=== PATIENT | male | born 1990 | race Caucasian/White ===

== ENCOUNTER 2016-10-26 18:46 | Emergency (ER) | payer MEDICAID ==
[~2016-10-26] VITALS: Ht 188 cm; Wt 102.1 kg
[~2016-10-26 18:46] MED LIST: AMOXICILLIN 50500 MG PO; ELIMITE 5%60 GM/TUBE EX; KEFLEX 500MG.500 MG PO; LAMISIL1% TP; LISINOPRIL/HCTZ1 TA3 PO; LORTAB 5/500 501 TAB PO; NOMEDS *; NORVASC 5MG. TAB5 MG PO; PREDNISONE 20MG20 MG PO; ROBAXIN-750750 MG PO
[2016-10-26] MEDS ORDERED: LOSARTAN POTASS1 TA3 PO (19:35)
[2016-10-26 19:47] LABS: URINE BILIRUBIN - DIPSTICK NEGATIVE (NEG); URINE BLOOD TRACE-LYSED (NEG)
[2016-10-26 19:54] LABS: AMPHETAMINES/METAMPHETAMINES NEGATIVE ng/mL (<1000)
[2016-10-26 20:17] LABS: HEMOGLOBIN 15.8 g/dL (14.1-18.0); LYMPH # 1.7 K/mm3 (0.7-4.5); LYMPH % 17.6 % (10-50)
--- NOTE | 2016-10-26 20:37 | Emergency Room Report ---
History of Present Illness Time Seen by [id number] Presenting Problem in Triage Pt arrived:Walked Presenting Problem:PT COMPLAINING OF FEELING LIGHT HEADED AND "LOTS OF PRESSURE " IN HEAD. PT STATES THAT IT STARTED THIS AM. 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 N Clinical Suspician of Infection? N Mental Status: 1 - Regular (Normal Baseline) Sepsis Risk:Low Sepsis Risk Have you (or family members/close friends) recently traveled outside the [place]? N If Yes, where/when: Have you had exposure to infectious disease within the past month? N TB? Other? Specify: Source patient, RN notes reviewed, family, old records Exam Limitations no limitations Comment feeling dizzy in head and light headed today - he states he feels this way after using etoh which he did yesterday Cardiac Chest Pain Chest pain indicative of cardiac No Timing/Duration this evening Severity moderate ALLERGIES Coded Allergies: No Known Allergies (10/26/16) Home Medications Reported Medications LOSARTAN/HYDROCHLOROTHIAZIDE (Losartan-Hctz 100-12.5 MG Tab) 1 TAB PO DAILY #27 History Medical History General CAD? No Angina: No [place]: No Hypertension? Yes Hyperlipidemia? No CHF? No DVT? No PE? No COPD? No Asthma? No Anemia? No GERD? No Gastric ulcers? No GI Bleed? No Hernia? Yes Thyroid Problems? No Hypothyroidism? No CVA? No Seizures? No Diabetes? No Insulin Dependent: No Insulin Pump: No Home FSBS? No Renal Insuffiency? No End Stage Renal Disease? No UTI? No Stones? No BPH? No GB Disease: No Nephritic Syndrome? No Asplenia? No Hepatitis? No Sickle Cell Disease? No Arthritis? No Migraines? No Cataracts? No Glaucoma? No MRSA? No HIV? No TB? No Anxiety? Yes Depression? No Cancer? No More? No Immunization Hx DT/Tetanus 1-4 Years Ago Flu 2 YRS AGO Pneumonia Never Had Surgical Hx Previous Surgery?Y DOUBLE HERNIA REPAIR,BABY L KNEE REPAIR WISDOM TEETH Family History Family Hx Diabetes No CAD No Hypertension No Hyperlipidemia No Cancer No TB No Social History Smoking Hx Smoker: Never Smoker Tobacco: No Type N/A Are you/the child exposed to second-hand smoke: No Alcohol Alcohol: Yes Drugs none Review of Systems All Other Systems Reviewed and Negative Constitutional see HPI, denies fever, other Eyes denies drainage ENT denies: ear pain, epistaxis, throat pain. Respiratory denies cough, denies shortness of breath, denies wheezing Cardiovascular see HPI, denies chest pain, denies palpitations, denies syncope, other Gastrointestinal denies abdominal pain, denies diarrhea, denies vomiting Genitourinary denies: dysuria, frequency, hesitancy, hematuria. Musculoskeletal denies joint pain, denies joint swelling, denies neck pain Skin denies rash Psychiatric/Neurological denies headache, denies seizure Physical Exam Vital Signs Vital Signs Date Time Temp Pulse Resp B/P Pulse O2 O2 Flow FiO2 Ox Delivery Rate 10/26 2039 98.7 99 22 124/72 99 10/26 1932 98.8 97 18 125/92 100 - WBC >12,000 or <4,000 or 10% bands? 2 or more SIRS Criteria Met? B/P:124/72 MAP:103 Creatinine >2.0? UA output<0.5ml/kg/hr for 2 hrs? Platelet count >100,000? Lactate >2.0mmol/1? INR >1.2 or PTT > than 60 sec? Evidence of Organ Dysfunction? Provider documented clinical suspician of infection? N Sepsis Criteria Count: 1 Sepsis Risk: Low Sepsis Risk General Appearance no apparent distress Eye Exam - bilateral eye PERRL, bilateral eye EOMI Ear, Nose, Throat normal ENT inspection Neck supple Respiratory Status No: respiratory distress. Lung Sounds bilateral: lungs clear. 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 No Results/Orders Laboratory Tests 10/26/162004: Sodium 137, Potassium 3.8, Chloride 99, Carbon Dioxide 28, BUN 8, Creatinine 0.9 , Estimated Creat Clear 178, Estimated GFR (MDRD) 101, Glucose 100, Calcium 9.7, Total Bilirubin 0.8, AST 70 H, ALT 60, Alkaline Phosphatase 93, Total Protein 8.6 H, Albumin 4.3, Globulin 4.3 H, Albumin/Globulin Ratio 1.0 L, WBC 9.6, RBC 5.11, Hgb 15.8, Hct 45.8, MCV 89.6, RDW 13.9, Plt Count 277, MPV 8.5, Gran % 76.9, Gran # 7.4, Lymphocytes % 17.6, Monocytes % 4.4, Eosinophils % 0.3, Basophils % 0.8, Lymphocytes # 1.7, Monocytes # 0.4, Eosinophils # 0.0, Basophils # 0.1, PUBS MCHC 34.4, MCH 30.9, Alcohols < 3 10/26/161934: Opiates Screen NEGATIVE, Urine Methadone Screen NEGATIVE, Barbiturates NEGATIVE, Phencyclidine Screen NEGATIVE, Amphetamines Screen NEGATIVE, Benzodiazepines Screen NEGATIVE, Cocaine Screen NEGATIVE, Marijuana (THC) Screen POSITIVE H, Urine Color YELLOW, Urine Appearance CLEAR, Urine pH 6.0, Ur Specific [place] <= 1.005, Urine Protein NEGATIVE, Urine Ketones 1+ H, Urine Blood TRACE-LYSED, Urine Nitrate NEGATIVE, Urine Bilirubin NEGATIVE, Urine Urobilinogen 0.2, Ur Leukocyte Esterase NEGATIVE, Urine RBC 3-5, Ur Squamous Epith Cells 3-5, Urine Bacteria TRACE, Urine Glucose NEGATIVE Current Medication Orders Sig/Nadeem Start time Last Medication Dose Route Stop Time Status Admin Sodium Chloride 1,000 ML .STK-MED ONE 10/26 2007 DC IV Sodium Chloride 10 ML PRN PRN 10/26 1999 AC IV 10/27 1956 Sodium Chloride 1,000 ML .Q1H1M 10/26 1999 DC 10/26 IV 10/26 Sodium Chloride 10 ML PRN PRN 10/26 1999 AC IV 10/27 1956 Orders Procedure Date/time Status ALCOHOL 10/26 2037 Complete IV SALINE LOCK 10/26 1956 Active CBC WITH AUTO DIFF 10/26 1956 Complete CHEM 12 PROFILE 10/26 1956 Complete URINALYSIS/COMPLETE 10/26 1936 Complete DRUG ABUSE SCREEN (TRIAGE) 10/26 1936 Complete Departure Departure Time of Disposition 2113 Disposition DC Home or Self Care(routine) Clinical Impression Primary Impression: Dizziness Condition STABLE Referrals Slim Stahl (Family) Patient Instructions DI for Dizziness-Nonvertigo Additional Instructions fluids and please consider not drinking Discharge Counseling Counseled pt/family regarding diagnosis, test results, medications/RX, follow up needs ED Critical Care Critical Care No (.) at [phone]
[2016-10-26 21:45] VITALS: BP 129/81
== END 2016-10-26 21:47 | disposition home or self-care (01) ==
LOC: ER 18:46
PROVIDERS: Emergency Medicine
DX: R42 Dizziness and giddiness (principal); I10 Essential (primary) hypertension; F41.9 Anxiety disorder, unspecified; F10.10 Alcohol abuse, uncomplicated
CPT/HCPCS: G6040

== ENCOUNTER 2017-06-08 14:46 | Emergency (ER) | payer MEDICAID ==
[~2017-06-08] VITALS: Ht 188 cm; Wt 104.3 kg
[~2017-06-08 14:46] MED LIST changes: +ESCITALOPRAM10 M1 PO; +LISINOPRIL20 MG PO; +LOSARTAN POTASS1 TA3 PO; +METOPROLOL SUCC25 M2 PO
[2017-06-08 15:04] LABS: URINE BILIRUBIN - DIPSTICK NEGATIVE (NEG); URINE BLOOD NEGATIVE (NEG)
--- NOTE | 2017-06-08 15:04 | Emergency Room Report ---
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 N Clinical Suspician of Infection? N Mental Status: 1 - Regular (Normal Baseline) Sepsis Risk:Low Sepsis Risk Have you (or family members/close friends) recently traveled outside the [place]? N If Yes, where/when: Have you had exposure to infectious disease within the past month? N TB? Other? Specify: Source patient, RN notes reviewed, family, RN/MD Exam Limitations no limitations Comment Patient is here with LEFT lower quadrant abdominal pain since early this morning. He denies any fever, nausea, vomiting, diarrhea. Patient denies any recent travel, any recent exposure to sick contacts. ALLERGIES Coded Allergies: No Known Allergies (10/26/16) Home Medications Reported Medications LOSARTAN/HYDROCHLOROTHIAZIDE (Losartan-Hctz 100-12.5 MG Tab) 1 TAB PO DAILY #27 Metoprolol Succinate 25 MG PO DAILY #30 Escitalopram Oxalate 10 MG PO DAILY #30 Lisinopril 20 MG PO DAILY #30 History Medical History General CAD? No Angina: No [place]: No Hypertension? Yes Hyperlipidemia? No CHF? No DVT? No PE? No COPD? No Asthma? No Anemia? No GERD? No Gastric ulcers? No GI Bleed? No Hernia? Yes Thyroid Problems? No Hypothyroidism? No CVA? No Seizures? No Diabetes? No Insulin Dependent: No Insulin Pump: No Home FSBS? No Renal Insuffiency? No End Stage Renal Disease? No UTI? No Stones? No BPH? No GB Disease: No Nephritic Syndrome? No Asplenia? No Hepatitis? No Sickle Cell Disease? No Arthritis? No Migraines? No Cataracts? No Glaucoma? No MRSA? No HIV? No TB? No Anxiety? Yes Depression? No Cancer? No More? No Immunization Hx DT/Tetanus 1-4 Years Ago Flu 2 YRS AGO Pneumonia Never Had Surgical Hx Previous Surgery?Y DOUBLE HERNIA REPAIR,BABY L KNEE REPAIR WISDOM TEETH Family History Family Hx Diabetes No CAD No Hypertension No Hyperlipidemia No Cancer No TB No Social History Smoking Hx Smoker: Current Every Day Smoker Tobacco: No Type Cigarettes Alcohol Alcohol: Yes Review of Systems All Other Systems Reviewed and Negative Gastrointestinal abdominal pain (LLQ) Physical Exam Vital Signs Vital Signs Date Time Temp Pulse Resp B/P Pulse O2 O2 Flow FiO2 Ox Delivery Rate 06/08 1635 98.2 70 16 122/74 98 06/08 1448 98.2 76 16 98 General Appearance normal appearance, WD/WN, no apparent distress Respiratory Status Yes: trachea midline, chest symmetrical, non tender chest. No: respiratory distress. Lung Sounds bilateral: normal breath sounds, lungs clear. 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 No Comment Patient appears in no acute distress, afebrile, is medically stable. Advise of results obtained, need to follow-up for discharge instructions, start antibiotics for his early colitis. Results/Orders Laboratory Tests 06/08/17 1458: Urine Color YELLOW, Urine Appearance CLEAR, Urine pH 6.5, Ur Specific [place] 1.020, Urine Protein NEGATIVE, Urine Ketones NEGATIVE, Urine Blood NEGATIVE, Urine Nitrate NEGATIVE, Urine Bilirubin NEGATIVE, Urine Urobilinogen 0.2, Ur Leukocyte Esterase NEGATIVE, Urine RBC NONE, Urine WBC OCC, Ur Squamous Epith Cells NONE, Urine Bacteria TRACE, Urine Glucose NEGATIVE Orders Procedure Date/time Status DIET-NOTHING BY MOUTH 06/[address] ABD/PELVIS REQ 06/08 1458 Complete URINALYSIS/COMPLETE 06/08 1458 Complete XRAY/CT/US XRAY/CT/US CT abdomen, pelvis CT interpretation by discussed w/radiologist CT Results abnormal Comment Please refer to the radiologist's report, consistent with sigmoid colitis, umbilical hernia Departure Departure Time of Disposition 1622 Disposition DC Home or Self Care(routine) Clinical Impression Primary Impression: Umbilical hernia Qualifiers: Obstruction and gangrene presence: without obstruction or gangrene Qualified Code: K42.9 - Umbilical hernia without obstruction or gangrene Secondary Impressions: Colitis Condition STABLE Referrals Brandon HOPE,Srinivasa Tomas Patient Instructions DI for Colitis, Umbilical Hernia-Child Additional Instructions Please take the medications prescribed as directed, follow-up with Dr. Walker if not better. Discharge Counseling Counseled pt/family regarding diagnosis, test results, medications/RX, home care, follow up needs Comment Please take the medications prescribed as directed, follow-up with Dr. Walker if not better. Prescriptions Current Visit Scripts Ciprofloxacin HCl (Cipro 500MG TAB) 500 MG PO BID #14 TAB Etodolac 200 MG PO QIDP PRN pain #20 CAP ED Critical Care Critical Care No at [id number]
--- NOTE | 2017-06-08 15:04 | Emergency Room Report ---
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 N Clinical Suspician of Infection? N Mental Status: 1 - Regular (Normal Baseline) Sepsis Risk:Low Sepsis Risk Have you (or family members/close friends) recently traveled outside the [place]? N If Yes, where/when: Have you had exposure to infectious disease within the past month? N TB? Other? Specify: Source patient, RN notes reviewed, family, RN/MD Exam Limitations no limitations Comment Patient is here with LEFT lower quadrant abdominal pain since early this morning. He denies any fever, nausea, vomiting, diarrhea. Patient denies any recent travel, any recent exposure to sick contacts. ALLERGIES Coded Allergies: No Known Allergies (10/26/16) Home Medications Reported Medications LOSARTAN/HYDROCHLOROTHIAZIDE (Losartan-Hctz 100-12.5 MG Tab) 1 TAB PO DAILY #27 Metoprolol Succinate 25 MG PO DAILY #30 Escitalopram Oxalate 10 MG PO DAILY #30 Lisinopril 20 MG PO DAILY #30 History Medical History General CAD? No Angina: No [place]: No Hypertension? Yes Hyperlipidemia? No CHF? No DVT? No PE? No COPD? No Asthma? No Anemia? No GERD? No Gastric ulcers? No GI Bleed? No Hernia? Yes Thyroid Problems? No Hypothyroidism? No CVA? No Seizures? No Diabetes? No Insulin Dependent: No Insulin Pump: No Home FSBS? No Renal Insuffiency? No End Stage Renal Disease? No UTI? No Stones? No BPH? No GB Disease: No Nephritic Syndrome? No Asplenia? No Hepatitis? No Sickle Cell Disease? No Arthritis? No Migraines? No Cataracts? No Glaucoma? No MRSA? No HIV? No TB? No Anxiety? Yes Depression? No Cancer? No More? No Immunization Hx DT/Tetanus 1-4 Years Ago Flu 2 YRS AGO Pneumonia Never Had Surgical Hx Previous Surgery?Y DOUBLE HERNIA REPAIR,BABY L KNEE REPAIR WISDOM TEETH Family History Family Hx Diabetes No CAD No Hypertension No Hyperlipidemia No Cancer No TB No Social History Smoking Hx Smoker: Current Every Day Smoker Tobacco: No Type Cigarettes Alcohol Alcohol: Yes Review of Systems All Other Systems Reviewed and Negative Gastrointestinal abdominal pain (LLQ) Physical Exam Vital Signs Vital Signs Date Time Temp Pulse Resp B/P Pulse O2 O2 Flow FiO2 Ox Delivery Rate 06/08 1635 98.2 70 16 122/74 98 06/08 1448 98.2 76 16 98 General Appearance normal appearance, WD/WN, no apparent distress Respiratory Status Yes: trachea midline, chest symmetrical, non tender chest. No: respiratory distress. Lung Sounds bilateral: normal breath sounds, lungs clear. 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 No Comment Patient appears in no acute distress, afebrile, is medically stable. Advise of results obtained, need to follow-up for discharge instructions, start antibiotics for his early colitis. Results/Orders Laboratory Tests 06/08/17 1458: Urine Color YELLOW, Urine Appearance CLEAR, Urine pH 6.5, Ur Specific [place] 1.020, Urine Protein NEGATIVE, Urine Ketones NEGATIVE, Urine Blood NEGATIVE, Urine Nitrate NEGATIVE, Urine Bilirubin NEGATIVE, Urine Urobilinogen 0.2, Ur Leukocyte Esterase NEGATIVE, Urine RBC NONE, Urine WBC OCC, Ur Squamous Epith Cells NONE, Urine Bacteria TRACE, Urine Glucose NEGATIVE Orders Procedure Date/time Status DIET-NOTHING BY MOUTH 06/[address] ABD/PELVIS REQ 06/08 1458 Complete URINALYSIS/COMPLETE 06/08 1458 Complete XRAY/CT/US XRAY/CT/US CT abdomen, pelvis CT interpretation by discussed w/radiologist CT Results abnormal Comment Please refer to the radiologist's report, consistent with sigmoid colitis, umbilical hernia Departure Departure Time of Disposition 1622 Disposition DC Home or Self Care(routine) Clinical Impression Primary Impression: Umbilical hernia Qualifiers: Obstruction and gangrene presence: without obstruction or gangrene Qualified Code: K42.9 - Umbilical hernia without obstruction or gangrene Secondary Impressions: Colitis Condition STABLE Referrals Brandon HOPE,Srinivasa Tomas Patient Instructions DI for Colitis, Umbilical Hernia-Child Additional Instructions Please take the medications prescribed as directed, follow-up with Dr. Walker if not better. Discharge Counseling Counseled pt/family regarding diagnosis, test results, medications/RX, home care, follow up needs Comment Please take the medications prescribed as directed, follow-up with Dr. Walker if not better. Prescriptions Current Visit Scripts Ciprofloxacin HCl (Cipro 500MG TAB) 500 MG PO BID #14 TAB Etodolac 200 MG PO QIDP PRN pain #20 CAP ED Critical Care Critical Care No at [id number]
--- NOTE | 2017-06-08 16:04 | RADIOLOGY REPORT PS360 ---
CT ABD PELVIS W/O CONTRAST CLINICAL INDICATION: LEFT LOWER ABD PAIN ORDERING PHYSICIAN: Brian Talbot MD PATIENT AGE: 27 years COMPARISON: 06/06/2012 TECHNIQUE: Axial images obtained with sagittal and coronal reformats. PROCEDURE: Oral Contrast: None IV Contrast: None . FINDINGS: Lower thorax: No acute finding Abdomen and pelvis: The liver, gallbladder, spleen, adrenal glands, and pancreas are unremarkable. No renal calculi, hydronephrosis, or ureteral calculi evident. Unremarkable appendix. No evidence of diverticulitis, intestinal obstruction, free air. There is some minimal haziness of the peritoneal fat in the left lower quadrant anterior to the distal descending colon. This however did have a similar appearance on the previous exam and could represent an old area of inflammation. Pelvis: No abnormal fluid collection or abscess. There is a tiny umbilical hernia containing fat area no acute bony anomalies. IMPRESSION: No acute intra-abdominal or pelvic pathology
[2017-06-08] MEDS ORDERED: CIPRO 500MG TA500 MG PO (16:24)
[2017-06-08] MEDS ORDERED: ETODOLAC200 MG PO (16:24)
[2017-06-08 16:35] VITALS: BP 122/74
== END 2017-06-08 16:36 | disposition home or self-care (01) ==
LOC: ER 14:46
PROVIDERS: Emergency Medicine
DX: K42.9 Umbilical hernia without obstruction or gangrene (principal); K52.9 Noninfective gastroenteritis and colitis, unspecified; I10 Essential (primary) hypertension; Z79.899 Other long term (current) drug therapy; F41.9 Anxiety disorder, unspecified; Z72.0 Tobacco use

== ENCOUNTER → 2017-09-28 | Outpatient (CLI) | payer MEDICAID ==
[~2017-09-28] MED LIST changes: +CIPRO 500MG TA500 MG PO; +ETODOLAC200 MG PO
--- NOTE | 2017-09-29 10:31 | RADIOLOGY REPORT PS360 ---
MRI-BRAIN W/O HISTORY: Severe headache and dizziness with inability to focus HEADACHE ORDERING PHYSICIAN: Srinivasa Taylor MD PATIENT AGE: 27 years COMPARISON: CT of 04/16/2016 TECHNIQUE: Standard multiplanar multiecho sequences are performed without contrast. FINDINGS: No midline shift, mass effect, intracranial hemorrhage, or hydrocephalus. No evidence of acute infarction. No intra or extra-axial mass. There is normal zapata-white matter differentiation with no abnormal white matter signal intensity apparent. The pituitary and optic chiasm and corpus callosum are unremarkable. No cerebellar tonsillar ectopia. The temporal gyri are symmetric and the temporal horns are unremarkable. No mastoid effusion or sinus air-fluid level. The cerebellopontine angles, cerebellum, and brainstem have an unremarkable appearance. No large aneurysms are evident. Small aneurysms may not be detected with this technique and may be better evaluated with MRA if clinically warranted. IMPRESSION: Negative MRI of the brain, no acute finding
== END ==
LOC: RAD 14:13
DX: R51 Headache (principal)